=== PATIENT | female | born 1960 | race African-American/Black ===

== ENCOUNTER 2017-02-06 23:36 | Emergency (ER) ==
[2017-02-06 23:49] VITALS: BP 155/96
--- NOTE | 2017-02-07 00:20 | PROVIDER DOCUMENTATION ---
HPI-Musculoskeletal Pain/Inj - GENERAL Source: patient - HX OF PRESENT ILLNESS-MUSKULOSKELTAL Quality of Pain: reports: aching Severity in ED: mild Onset/Duration: 4-6 hours ago Timing: still present Modifying Factors: improves with: nothing Any recent injury?: Yes Locality of Occurance: Home Similar Symptoms Previously?: No Recently seen or treated by another doctor?: No - FALL INJURY Location of Pain/Injury: reports: lower extremity, feet Pain Radiation: reports: no radiation Reason for Fall: reports: lost balance Symptoms prior to fall:: reports: none Loss of Consciousness: no loss of consciousness <Katey Marquis - Last Filed: 02/07/17 00:35> <Reji Goss - Last Filed: 02/07/17 00:45> - GENERAL Chief Complaint: Fall Stated Complaint: FALL Time Seen by Provider: 02/07/17 00:12 - HX OF PRESENT ILLNESS-MUSKULOSKELTAL Nature of Presenting Problem: 56 year old F presents to the ED with a cc of left foot and right knee pain. Pt states that she was walking with her son this afternoon while he was riding in his toy jeep. PT states that she though he was going to go off the curb so she stepped off to stop him. Pt states that she lost her balance and fell landing on stomach. (Katey Marquis) Review of Systems - Adult - REVIEW OF SYSTEMS - ADULT Constitutional: denies: chills, fever Eyes: reports: no symptoms reported Ears, Nose, Mouth & Throat: reports: no symptoms reported Cardiovascular: reports: no symptoms reported Respiratory: reports: no symptoms reported Gastrointestinal: denies: nausea, vomiting Genitourinary: reports: no symptoms reported Musculoskeletal: reports: muscle aches. denies: muscle weakness Integumentary: denies: skin sores/ulcer, skin thickening Neurological: denies: dizziness/vertigo, headache/migraines Psychiatric: reports: no symptoms reported Endocrine: reports: no symptoms reported Hematologic/Lymphatic: reports: no symptoms reported Allergic/Immunologic: reports: no symptoms reported All Other Systems: Reviewed and Negative <Katey Marquis - Last Filed: 02/07/17 00:35> Past History - Adult - PAST MEDICAL HISTORY-ADULT Review of Records: reports: Nursing Assessment Review, Medications Reviewed Major Childhood Illnesses: reports: denies history Cardiovascular: reports: HTN Gastrointestinal: reports: GERD Neurological: reports: headaches/migraines Endocrine/Immune: reports: thyroid disorder - PRIOR SURGERIES/PROCEDURES Surgical/Procedure History: reports: cholecystectomy, hysterectomy, , orthopedic (extremity) - IMMUNIZATION STATUS Childhood Immunizations: See Nurse Assessment Flu Vaccine: See Nurse Assessment - SOCIAL HISTORY Smoking: non-smoker Substance Use: none/never Alcohol Use Frequency: never <Katey Marquis - Last Filed: 02/07/17 00:35> Physical Exam-Injury Related - Physical Exam-Injury Related Initial Vital Signs Reviewed: Yes General Appearance: appears well, alert, no apparent distress Respiratory: chest non-tender, lungs clear, normal breath sounds Cardiovascular: normal peripheral pulses, regular rate, rhythm, no edema Extremity: swelling (left mid foot), tenderness (right knee) Integumentary: abrasion (right knee) Psych/Mental Status: normal mood/affect, normal thought content, normal thought process, oriented x 3 <Katey Marquis - Last Filed: 02/07/17 00:35> Progress - XRAY 1 XRAY: Left XRAY Study: Ankle Impression: Normal XRAY Interpretation: negative: Dr. Mya RIDLEY 2 XRAY: Left XRAY Study: Foot Impression: Normal XRAY Interpretation: negative- Dr. Jie ROSE MD 3 XRAY: Right XRAY Study: Knee Impression: Normal XRAY Interpretation: negative- Dr. Jie ROSE MD <Katey Marquis - Last Filed: 02/07/17 00:35> Departure <Katey Marquis - Last Filed: 02/07/17 00:35> - Departure Time of Disposition Order: 00:43 Certified Medical Emergency: Emergent <Reji Goss - Last Filed: 02/07/17 00:45> - Departure DIAGNOSIS: Abrasion of knee, right Qualifiers: Encounter type: initial encounter Qualified Code(s): S80.211A - Abrasion, right knee, initial encounter Sprain of foot, left Qualifiers: Encounter type: initial encounter Qualified Code(s): S93.602A - Unspecified sprain of left foot, initial encounter Disposition: HOME 01 Condition: Stable Prescriptions: Acetaminophen with Codeine [Tylenol with Codeine #3 Tablet] 1 each PO Q6H PRN PRN #20 tablet PRN Reason: Pain Referrals: Nik Singh MD [Primary Care Provider] - Attestation - Scribe Verification/Attestation Scribe:: Katey Marquis Acting as Scribe for:: Reji Goss Scribe documention review:: This chart was documented by a scribe and accurately reflects the service the provider performed and the decisions made by the provider. <Katey Marquis - Last Filed: 02/07/17 00:35> Physician Attestation
[2017-02-07] MEDS ORDERED: DEMEROL IM ONE (00:41)
[2017-02-07] MEDS ORDERED: PHENERGAN IM ONE (00:41)
--- NOTE | 2017-02-07 07:54 | Diag Imaging Result Document ---
PROCEDURE NAME: ANKLE COMPLETE LEFT - 02/06/2017 LEFT ANKLE, THREE VIEWS: FINDINGS: There is mild lateral soft tissue swelling. No fracture. No dislocation. Prominent inferior calcaneal bone spur. IMPRESSION: No acute bony injury.
--- NOTE | 2017-02-07 07:59 | Diag Imaging Result Document ---
PROCEDURE NAME: KNEE 3 VIEWS RIGHT - 02/06/2017 RIGHT KNEE, THREE VIEWS: FINDINGS: There is patellofemoral joint space narrowing with bone spurring. No fracture. No dislocation. IMPRESSION: No acute bony injury.
--- NOTE | 2017-02-07 08:04 | Diag Imaging Result Document ---
PROCEDURE NAME: FOOT COMPLETE LEFT - 02/06/2017 LEFT FOOT, THREE VIEWS: FINDINGS: There is a small inferior calcaneal bone spur. No fracture. No dislocation. IMPRESSION: No acute bony injury.
== END 2017-02-07 01:10 | disposition home or self-care (01) ==
LOC: P.ED 23:36
DX: S80.211A Abrasion, right knee, initial encounter (principal); S93.602A Unspecified sprain of left foot, initial encounter; M79.672 Pain in left foot; M25.561 Pain in right knee; M79.1 Myalgia; R22.42 Localized swelling, mass and lump, left lower limb; I10 Essential (primary) hypertension; E07.9 Disorder of thyroid, unspecified; Z79.899 Other long term (current) drug therapy; W10.1XXA Fall (on)(from) sidewalk curb, initial encounter
CPT/HCPCS: 96372; J2175; J2550